=== PATIENT | male | born 1990 | race Caucasian/White ===

== ENCOUNTER 2017-09-29 17:57 | Emergency (ER) | payer BC ==
[2017-09-29] MEDS ORDERED: Diphtheria,Pertussis(Acell),Tetanus Vaccine 0.5 ML Syringe IM ONE (19:06)
[2017-09-29] MEDS ORDERED: Bacitracin Oint 1 GM U/D Packet TOP ONE (19:06)
[2017-09-29] MEDS ORDERED: Ibuprofen 600 MG Tab PO ONE (19:06)
--- NOTE | 2017-09-29 19:11 | EDM.PDOC ---
ED HPI GENERAL MEDICAL PROBLEM - General Chief Complaint: Exposure to Heat or Cold Stated Complaint: BLISTERS RT HAND/FINGERS Time Seen by Provider: 09/29/17 19:01 - History of Present Illness INITIAL COMMENTS - FREE TEXT/NARRATIVE: HISTORY AND PHYSICAL: History of present illness: The patient is a healthy 27-year-old male who is unsure of his last tetanus shot and states he was working outdoors yesterday exposed to the cold but was wearing gloves and did not think anything of it but today he has noticed blisters to the tips of his right fingers 2 through 5. The remainder of the fingers are without swelling or injury as is the hand and he has no pain at these areas. His thumb is intact without injury. Patient says he was concerned about the blisters and did not know what to do but he assumes he has frostbite. He has no systemic complaints other than some cough and congestion from a cold that he is not concerned about. Patient says that fingers at the tips feel differently than the rest of his hand. Review of systems: As per history of present illness and below otherwise all systems reviewed and negative. Past medical history: As per history of present illness and as reviewed below otherwise noncontributory. Surgical history: As per history of present illness and as reviewed below otherwise noncontributory. Social history: No reported history of drug or alcohol abuse. Family history: As per history of present illness and as reviewed below otherwise noncontributory. Physical exam: HEENT: Atraumatic, normocephalic,negative for conjunctival pallor or scleral icterus, mucous membranes moist, throat clear, neck supple, nontender, trachea midline. Lungs: Clear to auscultation, breath sounds equal bilaterally, chest nontender. Heart: S1S2, regular rate and rhythm no overt murmurs Abdomen: Soft, nondistended, nontender. NABS Pelvis: Stable nontender. Genitourinary: Deferred. Rectal: Deferred. Extremities: Atraumatic with full range of motion of all extremities with the exception of the soft tissue raul of right digits 2 through 5 where there is paleness of the tissue and blisters appreciated but no tenderness or weeping. The remainder of the proximal digits are without any injury and are warm and nontender. Patient is able to flex and extend at all of these digits. The remainder of the right hand and proximally is without injury. Pulses are intact. Left hand is without any noted injury. The legs are, negative for cords or calf pain. Neurovascular unremarkable. Neuro: Awake, alert, oriented. Cranial nerves II through XII unremarkable. Cerebellum unremarkable. Motor and sensory unremarkable throughout. Exam nonfocal. Diagnostics: [] Therapeutics: Tdap, wound care with bacitracin, Motrin Impression: Cold exposure/frostbite to distal fingers right 2 through 5 Definitive disposition and diagnosis as appropriate pending reevaluation and review of above. - Related Data Allergies Allergy/AdvReac Type Severity Reaction Status Date / Time No Known Allergies Allergy Verified 09/29/17 18:18 Home Meds: Home Meds . 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 ED EXAM, GENERAL - Physical Exam Exam: See Below (See dictation) Course - Vital Signs Last Recorded V/S: Last Vital Signs Temp 37.8 C 09/29/17 18:19 Pulse 96 09/29/17 18:19 Resp 16 09/29/17 18:19 BP 151/86 H 09/29/17 18:19 Pulse Ox 97 09/29/17 18:19 - Orders/Labs/Meds Orders: Active Orders 24 hr Category Date Time Status Bacitracin [Bacitracin Oint 1 GM] Med 09/29/17 19:06 Once 1 dose TOP ONETIME ONE Ibuprofen [Motrin] Med 09/29/17 19:06 Once 600 mg PO ONETIME ONE Departure - Departure Time of Disposition: 19:09 Disposition: Home, Self-Care 01 Condition: Good Clinical Impression: Frostbite Qualifiers: Encounter type: initial encounter Qualified Code(s): T33.90XA - Superficial frostbite of unspecified sites, initial encounter - Discharge Information Referrals: PCP,None [Primary Care Provider] - Additional Instructions: The following information is given to patients seen in the emergency department who are being discharged to home. This information is to outline your options for follow-up care. We provide all patients seen in our emergency department with a follow-up referral. The need for follow-up, as well as the timing and circumstances, are variable depending upon the specifics of your emergency department visit. If you don't have a primary care physician on staff, we will provide you with a referral. We always advise you to contact your personal physician following an emergency department visit to inform them of the circumstance of the visit and for follow-up with them and/or the need for any referrals to a consulting specialist. The emergency department will also refer you to a specialist when appropriate. This referral assures that you have the opportunity for followup care with a specialist. All of these measure are taken in an effort to provide you with optimal care, which includes your followup. Under all circumstances we always encourage you to contact your private physician who remains a resource for coordinating your care. When calling for followup care, please make the office aware that this follow-up is from your recent emergency room visit. If for any reason you are refused follow-up, please contact the [facility] emergency department at and ask to speak to the emergency department charge nurse. [facility] Specialty clinic-[facility] [place] [address] Palomino our hand specialist on Sunday or Sunday to get follow- up in the clinic. Please take [id number] ibuprofen 600-800 mg every 6-8 hours for inflammation and discomfort. Please keep your hands warm. Cleanse your hands with mild soap and water pat dry and apply bacitracin or Aquaphor [id number]. Do not manipulate or pop the blisters. Return to ER as needed and as discussed - My Orders Last 24 Hours: My Active Orders 09/29/17 19:06 Bacitracin [Bacitracin Oint 1 GM] 1 dose TOP ONETIME ONE Ibuprofen [Motrin] 600 mg PO ONETIME ONE - Assessment/Plan Last 24 Hours: My Active Orders 09/29/17 19:06 Bacitracin [Bacitracin Oint 1 GM] 1 dose TOP ONETIME ONE Ibuprofen [Motrin] 600 mg PO ONETIME ONE
== END 2017-09-29 19:30 | disposition home or self-care (01) ==
LOC: MW.ED 17:57
DX: T33.531A Superficial frostbite of right finger(s), initial encounter (principal); Z77.22 Contact with and (suspected) exposure to environmental tobacco smoke (acute) (chronic); Z23 Encounter for immunization; X31.XXXA Exposure to excessive natural cold, initial encounter
CPT/HCPCS: 90471; 90715; 99283; A9270